=== PATIENT | female | born 1975 | race African-American/Black ===

== ENCOUNTER 2016-09-09 11:24 | Emergency (ER) | payer OTHER ==
[~2016-09-09 11:24] MED LIST: BENTYL20 MG PO; BP PILL; DICYCLOMINE HCL20 MG PO; FLEXERIL10 MG PO; LORTAB 5/500 TA1 TA1 PO; LORTAB 5/500 TA1 TA2 PO; LORTAB 7.51 TAB 7.5/ DOB; MEDROL DOSEPAK4 MG DOB; MEDROL PO; NAPROSYN500 MG PO; NO MEDICATIONS; VICODIN 5/1 TAB 5/50 DOB; ZOFRAN ODT4 MG PO; ZOFRAN PO; ZYRTEC PO
[2016-09-09 11:31] LABS: INFLUENZA A NEG (NEG); INFLUENZA B NEG (NEG)
== END 2016-09-09 12:10 | disposition home or self-care (01) ==
LOC: SED 11:24
PROVIDERS: Nurse Practitioner
DX: J11.1 Influenza due to unidentified influenza virus with other respiratory manifestations (principal); I10 Essential (primary) hypertension; Z98.51 Tubal ligation status; Z90.49 Acquired absence of other specified parts of digestive tract
CPT/HCPCS: 87651; 87804; 99283